=== PATIENT | male | born 1995 | race Asian ===

== ENCOUNTER 2019-01-11 06:03 | Emergency (ER) | payer OTHER ==
[~2019-01-11] VITALS: Ht 167.6 cm; Wt 68.0 kg
--- NOTE | 2019-01-11 06:15 | NUR ---
Pt came to emergency dept. complaining of testicular pain that started yesterday 02/23. Pt states his lower back started to hurt a few weeks ago, and yesterday he felt the pain in his testicular area. Pt states he does have burning with urination. Pt is AXO4. Respirations are even and unlabored. Pt ambulated to bed 1.
--- NOTE | 2019-01-11 06:34 | NUR ---
Pt ambulatory to bathroom to obtain urine sample.
--- NOTE | 2019-01-11 06:39 | NUR ---
Urine sent to Lab.
[2019-01-11 06:51] LABS: APPEARANCE,URINE CLEAR (CLEAR); BILIRUBIN,URINE NEGATIVE (NEGATIVE); BLOOD, URINE NEGATIVE Ery/uL (NEGATIVE); COLOR,URINE YELLOW (YELLOW); KETONES,URINE NEGATIVE (NEGATIVE); LEUKOCYTE ESTERASE ,URINE NEGATIVE (NEGATIVE); NITRITE, URINE NEGATIVE (NEGATIVE); PROTEIN,URINE NEGATIVE (NEGATIVE); UGLUCOSE NEGATIVE (NEGATIVE)
[2019-01-11 07:03] LABS: BACTERIA,URINE Few /HPF (None Seen); MUCUS,URINE Rare /LPF (None Seen); RBC,URINE 0-2 /HPF (0-2); SQUAMOUS EPITHELIAL CELL,UR Rare /HPF (None Seen); WBC,URINE 0-2 /HPF (0-3)
--- NOTE | 2019-01-11 07:05 | NUR ---
Ultrasound at bedside.
--- NOTE | 2019-01-11 07:22 | NUR ---
Report given to Janes LANG for AALIYAH.
[2019-01-11] MEDS ORDERED: CEFTRIAXONE 1 G VIAL ONE (08:24)
[2019-01-11] MEDS ORDERED: LIDOCAINE 2%-EPI 1:100,000 30 ML VIAL ONE (08:24)
[2019-01-11] MEDS ORDERED: CEFTRIAXONE 1 G VIAL IM ONE (08:30)
[2019-01-11] MEDS ORDERED: LIDOCAINE 1% INJ 50 ML MDV IJ ONE (08:33)
[2019-01-11] MEDS ORDERED: AZITHROMYCIN 250 MG TABLET ONE (08:50)
[2019-01-11] MEDS ORDERED: METRONIDAZOLE 500 MG TABLET ONE (08:50)
--- NOTE | 2019-01-11 08:58 | NUR ---
Patient discharged to home in stable condition. Written and verbal after care instructions given. Patient verbalizes understanding of instruction.
[2019-01-11 08:59] VITALS: BP 125/62
[2019-01-11] MEDS ORDERED: AZITHROMYCIN 250 MG TABLET PO ONE (09:00)
[2019-01-11] MEDS ORDERED: METRONIDAZOLE 500 MG TABLET PO ONE (09:00)
== END 2019-01-11 09:00 | disposition home or self-care (01) ==
LOC: ER 06:08
DX: N45.3 Epididymo-orchitis (principal); Z98.890 Other specified postprocedural states
CPT/HCPCS: 76870; 81001; 87086; 96372; 99284; A4606; J0696; J3490; 81000-TC

== ENCOUNTER 2019-03-29 05:12 | Emergency (ER) | payer BC, OTHER ==
[~2019-03-29] VITALS: Ht 170.2 cm; Wt 54.0 kg
--- NOTE | 2019-03-29 05:28 | NUR ---
BIB SELF FROM HOME. AAOX4. NAD. BREATHING EVEN AND UNLABORED. AMBULATORY. C/O R TESTICULAR PAIN X1 WEEK THAT RADIATES TO THE BACK. PT STATES THAT HE WAS DOING EXERCISE WHEN HE FIRST FELT THIS SENSATION. PT HAD THE SAME PAIN BACK IN DEC. PT TO ER BED 2. MD AT BEDSIDE FOR EVAL.
[2019-03-29] MEDS ORDERED: oxyCODONE/APAP (5/325 MG) 1 UDTAB TABLET PO ONE (05:30)
[2019-03-29] MEDS ORDERED: ONDANSETRON 4 MG TAB.RAPDIS SL ONE (05:30)
[2019-03-29] MEDS ORDERED: oxyCODONE/APAP (5/325 MG) 1 UDTAB TABLET ONE (05:34)
[2019-03-29] MEDS ORDERED: ONDANSETRON 4 MG TAB.RAPDIS ONE (05:34)
--- NOTE | 2019-03-29 05:36 | NUR ---
URINE SPECIMEN COLLECTED AND SENT TO LAB.
[2019-03-29 05:41] LABS: APPEARANCE,URINE Clear (CLEAR); BILIRUBIN,URINE Negative (NEGATIVE); BLOOD, URINE Negative Ery/uL (NEGATIVE); COLOR,URINE Yellow (YELLOW); KETONES,URINE Negative (NEGATIVE); LEUKOCYTE ESTERASE ,URINE Negative (NEGATIVE); NITRITE, URINE Negative (NEGATIVE); PH,URINE 6.5 (5.0-8.0); PROTEIN,URINE Negative (NEGATIVE); UGLUCOSE Negative (NEGATIVE); UROBILINOGEN,URINE 0.2 EU/dL (0.2)
--- NOTE | 2019-03-29 05:41 | NUR ---
PT REFUSED MEDICATION, PERCOCET AND ZOFRAN. PT STATES THAT HE CAN TOLERATE THE PAIN AND DOES NOT NEED TO HAVE PAIN MEDICATION. MD GOMEZ.
--- NOTE | 2019-03-29 06:01 | NUR ---
CALLED ULTRASOUND DEPT, NO ANSWER
--- NOTE | 2019-03-29 06:18 | NUR ---
US AT BEDSIDE
--- NOTE | 2019-03-29 06:51 | NUR ---
Patient discharged to home in stable condition. Written and verbal after care instructions given. Patient verbalizes understanding of instruction. Patient left facility on foot with steady gait. Pt refused to take pain meds. No IV access placed on pt. ID band removed. VS stable.
[2019-03-29 06:53] VITALS: BP 118/60
== END 2019-03-29 06:55 | disposition home or self-care (01) ==
LOC: ER 05:14
DX: N50.811 Right testicular pain (principal); Z98.890 Other specified postprocedural states
CPT/HCPCS: 76870-TC; 81000-TC; Q0162